=== PATIENT | female | born 1960 | race Caucasian/White ===

== ENCOUNTER 2023-04-10 08:13 | Inpatient (IN) ==
--- NOTE | 2023-03-20 10:01 | PAT Medication Instructions ---
Medication Instructions Date of Service March 20, 2023 Home Medications albuterol sulfate 90 mcg/actuation aerosol inhaler 1 inh inhalation QID PRN Shortness Of Breath bupropion HCl 150 mg 24 hr tablet, extended release 450 mg PO QPM carvedilol 12.5 mg tablet 12.5 mg PO BID cholecalciferol (vitamin D3) 50 mcg (2,000 unit) capsule (Vitamin D3) 50 mcg PO QPM cyanocobalamin (vitamin B-12) 1,000 mcg/mL injection solution 1,000 mcg IM MONTHLY cyanocobalamin (vitamin B-12) 2,000 mcg tablet,extended release (Vitamin B-12 ER) 2,000 mcg PO QPM cyclobenzaprine 10 mg tablet 10 mg PO TID PRN Muscle Spasm diltiazem HCl 360 mg tablet,extended release 24 hr 360 mg PO QPM loratadine 10 mg tablet (Claritin) 10 mg PO QAM losartan 100 mg-hydrochlorothiazide 25 mg tablet 1 tab PO QAM metformin 500 mg tablet,extended release 24 hr 500 mg PO QAM pantoprazole 40 mg tablet,delayed release 40 mg PO QAM potassium chloride 20 mEq tablet,extended release 20 meq PO BID prednisolone acetate (PF) 1 % eye drops,suspension 1 drp ophthalmic (eye) UD PRN occuvitis rivaroxaban 20 mg tablet (Xarelto) 20 mg PO PM rosuvastatin 20 mg tablet 20 mg PO QPM ASK your prescriber and surgeon rivaroxaban 20 mg tablet (Xarelto) 20 mg PO PM DO NOT take the morning of surgery cyanocobalamin (vitamin B-12) 1,000 mcg/mL injection solution 1,000 mcg IM MONTHLY loratadine 10 mg tablet (Claritin) 10 mg PO QAM losartan 100 mg-hydrochlorothiazide 25 mg tablet 1 tab PO QAM metformin 500 mg tablet,extended release 24 hr 500 mg PO QAM potassium chloride 20 mEq tablet,extended release 20 meq PO BID Take morning of surgery With a small sip of water, OTHERWISE NOTHING TO EAT OR DRINK AFTER MIDNIGHT: albuterol sulfate 90 mcg/actuation aerosol inhaler 1 inh inhalation QID PRN Shortness Of Breath (use if needed; please bring rescue inhaler with you to hospital day of surgery if possible) carvedilol 12.5 mg tablet 12.5 mg PO BID cyclobenzaprine 10 mg tablet 10 mg PO TID PRN Muscle Spasm (if needed) pantoprazole 40 mg tablet,delayed release 40 mg PO QAM prednisolone acetate (PF) 1 % eye drops,suspension 1 drp ophthalmic (eye) UD PRN occuvitis (if needed) Take evening before surgery albuterol sulfate 90 mcg/actuation aerosol inhaler 1 inh inhalation QID PRN Shortness Of Breath (if needed) bupropion HCl 150 mg 24 hr tablet, extended release 450 mg PO QPM carvedilol 12.5 mg tablet 12.5 mg PO BID cholecalciferol (vitamin D3) 50 mcg (2,000 unit) capsule (Vitamin D3) 50 mcg PO QPM cyanocobalamin (vitamin B-12) 2,000 mcg tablet,extended release (Vitamin B-12 ER) 2,000 mcg PO QPM cyclobenzaprine 10 mg tablet 10 mg PO TID PRN Muscle Spasm (if needed) diltiazem HCl 360 mg tablet,extended release 24 hr 360 mg PO QPM potassium chloride 20 mEq tablet,extended release 20 meq PO BID prednisolone acetate (PF) 1 % eye drops,suspension 1 drp ophthalmic (eye) UD PRN occuvitis (if needed) rosuvastatin 20 mg tablet 20 mg PO QPM Other Notes If you have any questions please call us at [phone] or [phone] or [phone] or [phone]
--- NOTE | 2023-03-27 13:14 | Anesthesiology Consultation ---
Date of Service March 27, 2023 Assessment & Plan (1) Encounter for pre-operative examination: - Check BSG AM DOS - Infectious disease screening: Per assessment on 03/27/23: No known infectious disease contacts or current infectious disease symptoms. No noted Covid positive test result in past 90 days. - Xarelto instructions: per surgeon/prescriber - Patient request/concern: Patient very anxious regarding upcoming surgery/anesthesia. She is requesting preop anxiolytic if possible. - Patient acceptable risk for surgery pending upcoming cardiology office visit note (Dr. Heck, appt 03/29). Chart Review Chart Review: Patient seen in Pre Admission Testing Teaching & Discussion Pre-Anesthesia Teaching/Discussion Notes: Instructed NPO after midnight before surgery,except medications with 15 cc of water. Medication instructions provided according to the PAT guidelines. History Surgery Operation Date: 04/10/23 10:05 Proposed Procedures p L4-S1 Decompression and Fusion, Spinal Cord Monitoring - Jose De Jesus Pierre, Height/Weight Height: 5 ft 4 in Weight: 99.5 kg Allergies Allergy/AdvReac Type Severity Reaction Status Date / Time aspirin [From Percodan] Allergy Intermediate Facial Verified 03/27/23 21:09 itching + swelling oxycodone [From Percodan] Allergy Intermediate Facial Verified 03/27/23 21:09 itching + swelling Sulfa (Sulfonamide Allergy Intermediate Hives Verified 03/19/23 16:34 Antibiotics) Medications Home Medications Medication Instructions Recorded Confirmed Last Taken albuterol sulfate 90 mcg/actuation 1 inh inhalation QID PRN Shortness 03/19/23 03/19/23 Unknown aerosol inhaler Of Breath bupropion HCl 150 mg 24 hr tablet, 450 mg PO QPM 03/19/23 03/19/23 Unknown extended release carvedilol 12.5 mg tablet 12.5 mg PO BID 03/19/23 03/19/23 Unknown cholecalciferol (vitamin D3) 50 50 mcg PO QPM 03/19/23 03/19/23 Unknown mcg (2,000 unit) capsule (Vitamin D3) cyanocobalamin (vitamin B-12) 1,000 mcg IM MONTHLY 03/19/23 03/19/23 Unknown 1,000 mcg/mL injection solution cyanocobalamin (vitamin B-12) 2,000 mcg PO QPM 03/19/23 03/19/23 Unknown 2,000 mcg tablet,extended release (Vitamin B-12 ER) cyclobenzaprine 10 mg tablet 10 mg PO TID PRN Muscle Spasm 03/19/23 03/19/23 Unknown diltiazem HCl 360 mg 360 mg PO QPM 03/19/23 03/19/23 Unknown tablet,extended release 24 hr loratadine 10 mg tablet (Claritin) 10 mg PO QAM 03/19/23 03/19/23 Unknown losartan 100 1 tab PO QAM 03/19/23 03/19/23 Unknown mg-hydrochlorothiazide 25 mg tablet metformin 500 mg tablet,extended 500 mg PO QAM 03/19/23 03/19/23 Unknown release 24 hr pantoprazole 40 mg tablet,delayed 40 mg PO QAM 03/19/23 03/19/23 Unknown release potassium chloride 20 mEq 20 meq PO BID 03/19/23 03/19/23 Unknown tablet,extended release prednisolone acetate (PF) 1 % eye 1 drp ophthalmic (eye) UD PRN 03/19/23 03/19/23 Unknown drops,suspension occuvitis rivaroxaban 20 mg tablet (Xarelto) 20 mg PO PM 03/19/23 03/19/23 Unknown rosuvastatin 20 mg tablet 20 mg PO QPM 03/19/23 03/19/23 Unknown Past Medical History Medical History Diabetes mellitus, type 2 Hyperlipemia Hypertension History of endometriosis Chronic back pain Scoliosis Depression Temporomandibular joint disorder + clicking, + rare locking Atrial fibrillation s/p ablation, taking Xarelto Follows with Dr. 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 History of cholecystectomy History of appendectomy History of tooth extraction History of wisdom tooth extraction Status post biopsy of thyroid gland benign nodules History of cardiac radiofrequency ablation 08/2022 @ [facility] Past Anesthesia History No Hx of Anesthesia Complications and No Family Hx of Anesthesia Complications History of PONV No Hx of PONV and Hx of Motion Sickness Social History Smoking Status: Light tobacco smoker Smoking cigarettes per day: 4 cigs/day Do You Dip or Chew Tobacco: No Hx Alcohol Use: No Hx Substance Use: No substance use type: does not use Review of Systems Patient denies chest pain, shortness of breath, fever, chills, cough, wheezing, palpitations. Physical Exam Vital Signs VITALS BP 163/83 P 72 TEMP 98.2 SP02 96%RA RESP 18 PHYSICAL Full cervical extension range of motion. Full TMJ range of motion. TMD 3 finger breaths Mallampati Score 2 Dentition: missing molars Lungs: clear throughout to auscultation Cardiac: regular rate and rhythm, no murmurs noted Spine: normal Carotid arteries: negative bruit Extremities: no LE edema Lab Results Anesthesia Preop Results Results Anesthesia Widget: WBC 9.74 K/ul (4.8-10.8) 03/27/23 Hgb 12.9 g/dl (12.0-16.0) 03/27/23 Hct 39.9 % (37.0-47.0) 03/27/23 Plt 380 K/uL (130-400) 03/27/23 Na 140 mmol/L (136-145) 03/27/23 K 4.3 mmol/L (3.5-5.1) 03/27/23 Cl 105 mmol/L (98-107) 03/27/23 CO2 29 mmol/L (21-32) 03/27/23 BUN 11 mg/dl (6-23) 03/27/23 Creat 0.69 mg/dl (0.6-1.2) 03/27/23 Glucose Level 120 mg/dl (70-99(Fasting)) H 03/27/23 PT 13.5 Seconds (9.0-12.0) H 03/27/23 PTT 34.9 Seconds (21.0-31.0) H 03/27/23 INR 1.2 (0.9-1.1) H 03/27/23 HA1c 6.3 % (4.5-5.6) H 03/27/23 Urine Color Yellow 03/27/23 Urine Appearance Clear (Clear) 03/27/23 Urine pH 6.5 (4.5-7.5) 03/27/23 Urine Specific [place] 1.006 (1.000-1.030) 03/27/23 Urine Protein Negative (Negative) 03/27/23 Urine Glucose (UA) Negative (Negative) 03/27/23 Urine Ketones Negative (Negative) 03/27/23 Urine Blood Negative (Negative) 03/27/23 Urine Nitrite Negative (Negative) 03/27/23 Urine Bilirubin Negative (Negative) 03/27/23 Urine Urobilinogen Negative (Negative) 03/27/23 Urine Leukocyte Esterase Negative (Negative) 03/27/23 Blood Type A Positive 03/27/23 Antibody Screen NEGATIVE 03/27/23 Testing Laboratory Results Mildly elevated coags- patient taking Xarelto* Electrocardiogram Date: 03/27/23 Findings: + NSR @ (69) Chest X-Ray Date: 03/27/23 FINDINGS: Lung volumes are normal. Lungs are clear. There is no pneumothorax or pleural effusion. Cardiac size is normal. Mediastinal contours are normal. There is no evidence for pulmonary edema. IMPRESSION: No acute cardiopulmonary findings. Echocardiogram Date: 08/10/21 EF 55 to 60%.
[~2023-04-10 08:13] MED LIST: GABAPENTIN 600 MG DOSE PO SCH; LR 15ML/HR IV SCH; LR 60ML/HR IV SCH
[2023-04-10] MEDS ORDERED: MIDAZOLAM HCL 1 MG/ML 2ML VIAL ONE (08:31)
[2023-04-10] MEDS ORDERED: DEXAMETHASONE SOD INJ 4 MG/ML VIAL ONE (08:31)
[2023-04-10] MEDS ORDERED: PROPOFOL IV EMULSION 10 MG/ML 20 ML VIAL IV ONE (08:31)
[2023-04-10] MEDS ORDERED: fentaNYL citrate PF 100 MCG/2 ML VIAL ONE (08:31)
[2023-04-10] MEDS ORDERED: LIDOCAINE 2% 2 ML VIAL/AMP(20MG/ML) INFIL ONE (08:31)
[2023-04-10] MEDS ORDERED: ROCURONIUM BROMIDE 10 MG/ML 5 ML VIAL IV ONE (08:31)
[2023-04-10] MEDS ORDERED: ONDANSETRON INJ 2 MG/ML 2 ML VIAL ONE (08:31)
[2023-04-10] MEDS ORDERED: HYDROmorphone INJ 2 MG/ML SYR/VIAL ONE (08:32)
--- NOTE | 2023-04-10 09:30 | History & Physical Bridge Note ---
Date of Service April 10, 2023 History & Physical Bridge Note I have examined the patient, reviewed the History & Physical and in the interval since the performance of the History & Physical I have noted the following changes of clinical significance: no changes noted
--- NOTE | 2023-04-10 09:32 | History & Physical Report ---
Date of Service April 10, 2023 Assessment & Plan (1) Neurogenic claudication due to lumbar spinal stenosis: Plan: L4-S1 decompression and fusion History of Present Illness Chief Complaint: Back and leg pain Primary Care Provider: Ale Wilder This is a 62-year-old female who presents for chronic persistent back and leg pain after failing course of nonoperative care she is here for surgical invention. Allergies Allergy/AdvReac Type Severity Reaction Status Date / Time aspirin [From Percodan] Allergy Intermediate Facial Verified 04/10/23 09:00 itching + swelling oxycodone [From Percodan] Allergy Intermediate Facial Verified 04/10/23 09:00 itching + swelling Sulfa (Sulfonamide Allergy Intermediate Hives Verified 04/10/23 09:00 Antibiotics) Home Medications Medication Instructions Recorded Confirmed Type albuterol sulfate 90 mcg/actuation 1 inh inhalation QID PRN Shortness 03/19/23 04/10/23 History aerosol inhaler Of Breath bupropion HCl 150 mg 24 hr tablet, 450 mg PO QPM 03/19/23 04/10/23 History extended release carvedilol 12.5 mg tablet 12.5 mg PO BID 03/19/23 04/10/23 History cholecalciferol (vitamin D3) 50 50 mcg PO QPM 03/19/23 04/10/23 History mcg (2,000 unit) capsule (Vitamin D3) cyanocobalamin (vitamin B-12) 1,000 mcg IM MONTHLY 03/19/23 04/10/23 History 1,000 mcg/mL injection solution cyanocobalamin (vitamin B-12) 2,000 mcg PO QPM 03/19/23 04/10/23 History 2,000 mcg tablet,extended release (Vitamin B-12 ER) cyclobenzaprine 10 mg tablet 10 mg PO TID PRN Muscle Spasm 03/19/23 04/10/23 History diltiazem HCl 360 mg 360 mg PO QPM 03/19/23 04/10/23 History tablet,extended release 24 hr loratadine 10 mg tablet (Claritin) 10 mg PO QAM 03/19/23 04/10/23 History losartan 100 1 tab PO QAM 03/19/23 04/10/23 History mg-hydrochlorothiazide 25 mg tablet metformin 500 mg tablet,extended 500 mg PO QAM 03/19/23 04/10/23 History release 24 hr pantoprazole 40 mg tablet,delayed 40 mg PO QAM 03/19/23 04/10/23 History release potassium chloride 20 mEq 20 meq PO BID 03/19/23 04/10/23 History tablet,extended release prednisolone acetate (PF) 1 % eye 1 drp ophthalmic (eye) UD PRN 03/19/23 04/10/23 History drops,suspension occuvitis rivaroxaban 20 mg tablet (Xarelto) 20 mg PO PM 03/19/23 04/10/23 History rosuvastatin 20 mg tablet 20 mg PO QPM 03/19/23 04/10/23 History Past Med/Surg History Medical History Diabetes mellitus, type 2 Hyperlipemia Hypertension History of endometriosis Chronic back pain Scoliosis Depression Temporomandibular joint disorder + clicking, + rare locking Atrial fibrillation s/p ablation, taking Xarelto Follows with Dr. 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 History of cholecystectomy History of appendectomy History of tooth extraction History of wisdom tooth extraction Status post biopsy of thyroid gland benign nodules History of cardiac radiofrequency ablation 08/2022 @ [facility] Family History Other No family history of adverse response to anesthesia Social History Smoking Status: Light tobacco smoker Tobacco Type: Cigarettes Cigarettes Per Day: 4 cigs/day; Second Hand Exposure: No; Do You Dip or Chew Tobacco: No; Tobacco Cessation Education Requested by Patient: No Hx Alcohol Use: No Hx Substance Use: No Preferred Language: Kyrgyz Communication Ability: Effective Moth Exterminator Required: No Beliefs That Will Affect Care: None Current Living Situation: Spouse Other Information That Helps Us Care for You: No Feels Safe at Home: Yes Safety Concerns: Feels Safe At This Time Assistive Devices: Glasses Physical Exam Physical Exam: Patient is alert and oriented Heart regular rhythm lungs clear Results & Data Results & Data Vital Signs (Past 12 Hours) Vital Signs Temp Pulse Resp BP Pulse Ox O2 Del Method 04/10/23 09:09 36.7 C 82 20 168/84 H 97 Room Air
[2023-04-10] MEDS ORDERED: ceFAZolin 330 MG/ML 1 GM VIAL ONE (09:58)
[2023-04-10] MEDS ORDERED: BUPIVACAINE/EPINEPHRINE 0.25% 1:200,000 30 ML VIAL ONE (09:58)
[2023-04-10] MEDS ORDERED: ATROPINE SULFATE 0.1 MG/ML 10ML SYR IV PRN (09:59)
[2023-04-10] MEDS ORDERED: ePHEDrine sulfate 50 MG/ML AMP IV PRN (09:59)
[2023-04-10] MEDS ORDERED: PROMETHAZINE HCL 12.5 MG in SODIUM CHLORIDE 0.9% 50 ML IV PRN ×2 (09:59→14:47)
[2023-04-10] MEDS ORDERED: ONDANSETRON INJ 2 MG/ML 2 ML VIAL IV PRN ×2 (09:59→14:47)
[2023-04-10] MEDS ORDERED: fentaNYL citrate PF 100 MCG/2 ML VIAL IV PRN (09:59)
[2023-04-10] MEDS: ceFAZolin 2000MG 2,000 MG/15 ML SYR IV SCH ×3 (10:01→18:21)
[2023-04-10] MEDS ORDERED: FLOSEAL HEMOSTATIC MATRIX 10ML TOP ONE (12:04)
[2023-04-10] MEDS ORDERED: SUGAMMADEX SODIUM 200 MG/2 ML VIAL IV ONE (12:04)
--- NOTE | 2023-04-10 12:15 | Operative Report ---
Post Operative Report Pre & Post Diagnosis Operation Date: 04/10/23 09:45 Pre-Op Diagnosis: Neurogenic Claudication Due To Lumbar Spinal Stenosis Spondylolisthesis L4-L5 Post-Op Diagnosis: Same I identified the patient and participated in the time-out.: Yes Procedure Operation Date: 04/10/23 09:45 Actual Procedures #1 lumbar decompression bilaterally facetectomies and foraminotomies L3-L4, L4-5 and L5-S1. #2 posterior spinal fusion L4-S1. #3 placement posterior instrumentation L4-S1. #4 interbody fusion L4-L5 L5-S1. #5 placement of Spira 13 x 26 mm at L4-5 and 12 x 26 mm at L5-S1. #6 placement locally harvested morselized autograft in the posterior gutters. #7 placement of I factor in the interbody space and infuse collagen sponge, mass graft in the posterior lateral gutters. Surgeon Jose De Jesus Pierre, DO Corrosion Control Engineer Lucinda Kasper Estimated Blood Loss 100 Findings See Below The patient is 5 foot 4 weighing over 100 kg with a BMI in excess of 37. Patient's body mass did contribute to significant technical difficulty requiring her deeper retractors longer instruments in order to perform her procedure. This at least 50% increased operative time. Specimens None Indications This is a 62-year-old female who presents above-mentioned diagnosis of failing since course of nonoperative care she is here for surgical invention. Description of Procedure Patient was met with identified informed consent obtained. Patient was taken to the operative suite and after undergoing intubation was placed in a prone position on the Travis table top of the Shravan frame. All bony promises well- padded I suspected to ensure no external precipice spinal. This point the lumbar spine was prepped and draped in a sterile fashion. Sharp dissection with the assistance of Bovie cautery to form down to and exposing the lamina and transverse processes of L4-5 and sacral ala bilaterally. From caudal cephalad fashion complete and laminectomy of L5 L4 and partial laminectomy of L3 was performed including bilateral medial facetectomies and foraminotomies addressing severe spinal stenosis. Pedicle screw was then placed in L4-L5 and S1 levels bilaterally with assistance of fluoroscopy and the properly sized marcos contoured and placed. By way of a transforaminal approach on the left a discectomy of L5- S1 was performed endplates guarded to subcortical bleeding bone and a 12 x 26 mm Spira cage with I factor tapped in position. Then proceeded to the right transforaminal region of L5-S1. Again completed discectomy curetted the endplates to subcortical bleeding bone and placed a second 12 x 26 mm Spira cage into position. And then proceeded to L4-L5 region by way of transforaminal approach on the left complete discectomy was performed endplates guarded to subcortical bleeding bone and a 13 x 26 mm Spira cage with I factor tapped in position. The rods were then compressed locked in final position bilaterally. The transverse processes of L4-5 and sacral ala burred to subcortical bone. Infuse collagen sponge, mass graft local graft was placed in the posterior gutters. 15 round RICHARD drain inserted. The incision was then closed with 1 Vicryl to fascia 2-0 Vicryl subcutaneously and 4 Monocryl for final skin closure. Steri-Strips sterile dressing placed. Patient waken taken to PACU stable addition. Please note spinal cord monitoring was utilized at the procedure no changes noted. Lastly Lucinda Kasper was present that the entire surgeon while the patient positioning complex portion of the surgery and final skin closure. I attest to the content of the Intraoperative Record and any orders documented therein. Any exceptions are noted below.
--- NOTE | 2023-04-10 14:40 | Anesthesiology Progress Note ---
Date of Service April 10, 2023 Anesthesia Post Procedure Vital Signs Vital Signs: Temp Pulse Pulse Resp BP Pulse Ox O2 Del Method 04/10/23 14:00 75 12 136/84 92 Room Air 04/10/23 13:35 36.4 C L 68 12 130/75 94 Room Air 04/10/23 13:25 67 13 138/79 95 Room Air 04/10/23 13:15 69 12 126/77 93 Room Air 04/10/23 13:05 73 13 156/77 H 97 Room Air 04/10/23 12:55 71 12 138/78 100 Oxymask 04/10/23 12:45 69 11 L 135/73 99 Oxymask 04/10/23 12:35 36.3 C L 70 14 136/79 99 Oxymask 04/10/23 09:09 36.7 C 82 20 168/84 H 97 Room Air O2 Flow Rate 04/10/23 14:00 04/10/23 13:35 04/10/23 13:25 04/10/23 13:15 04/10/23 13:05 04/10/23 12:55 5 04/10/23 12:45 5 04/10/23 12:35 5 04/10/23 09:09 Pain Intensity Bilateral Lower Back: Pain Intensity: 6 Transfer of Care Handoff Completed per policy Notes Mental Status: alert / awake / arousable and participated in evaluation Patient Amnestic to Procedure: Yes Nausea / Vomiting: adequately controlled Pain: adequately controlled Airway Patency, RR, SpO2: stable & adequate BP & HR: stable & adequate Hydration State: stable & adequate Anesthetic Complications: no major complications apparent and Pt Satisfied with anesthetic care
[2023-04-10] MEDS ORDERED: bisacodyL 10 MG SUPP PR PRN (14:47)
[2023-04-10] MEDS ORDERED: ALBUTEROL HFA 8 GM INHALER INH PRN (14:47)
[2023-04-10] MEDS ORDERED: traMADol HCL 50 MG TABLET PO PRN (14:47)
[2023-04-10] MEDS ORDERED: ACETAMINOPHEN 500 MG TAB PO PRN (14:47)
[2023-04-10] MEDS ORDERED: ALUMINUM/MAGNESIUM SUSP 30 ML UDC PO PRN (14:47)
[2023-04-10] MEDS ORDERED: LORazepam 0.5 MG in SYRINGE 0.25 ML IV PRN (14:47)
[2023-04-10] MEDS ORDERED: HYDROmorphone INJ 0.5 MG/0.5 ML SYR IV PRN (14:47)
[2023-04-10] MEDS ORDERED: PHARMACY GLYCEMIC MGMT CONSULT PRN (14:47)
[2023-04-10] MEDS ORDERED: SOD PHOSPHATE/SOD BIPHOSPHATE ENEMA 132 ML BTL PR PRN (14:47)
[2023-04-10] MEDS ORDERED: ONDANSETRON 4 MG OD TAB PO PRN (14:47)
[2023-04-10] MEDS ORDERED: METOCLOPRAMIDE HCL INJ 5 MG/ML 2 ML VIAL IV PRN (14:47)
[2023-04-10] MEDS ORDERED: ACETAMINOPHEN 1,000 MG/100 ML VIAL IV PRN (14:47)
[2023-04-10] MEDS ORDERED: diphenhydrAMINE Capsule 25 MG CAP PO PRN (14:47)
[2023-04-10] MEDS ORDERED: HYDROmorphone INJ 1 MG/ML SYRINGE IV PRN (14:47)
[2023-04-10] MEDS ORDERED: hydrOXYzine HCl 25 MG TAB PO PRN (14:47)
[2023-04-10] MEDS ORDERED: NALOXONE HCL 0.4 MG/1 ML VIAL/CARP IV PRN (14:47)
[2023-04-10] MEDS ORDERED: MAGNESIUM HYDROXIDE SUSP 30 ML UDC PO PRN (14:47)
[2023-04-10] MEDS ORDERED: LORazepam 0.5 MG TAB PO PRN (14:47)
[2023-04-10] MEDS ORDERED: FAMOTIDINE 20 MG TAB PO PRN (14:47)
[2023-04-10] MEDS ORDERED: DO NOT ADMINISTER PNEUMOCOCCAL VACCINE PRN (14:47)
[2023-04-10] MEDS ORDERED: DO NOT ADMINISTER FLU VACCINE PRN (14:47)
[2023-04-10] MEDS ORDERED: GLUCAGON FOR INJ 1 MG VIAL IM PRN (15:15)
[2023-04-10] MEDS ORDERED: DEXTROSE 50% 50 ML SYRINGE IV PRN (15:15)
[2023-04-10] MEDS ORDERED: GLUCOSE 40% GEL 15 GM TUBE PO PRN (15:15)
[2023-04-10] MEDS ORDERED: CARBOHYDRATES FOR HYPOGLYCEMIA PO PRN (15:15)
[2023-04-10] MEDS ORDERED: GLUCOSE 10 TAB/TUBE PO PRN (15:15)
--- NOTE | 2023-04-10 15:46 | Fluoroscopy Report ---
[place] lumbar spine 2-3V CLINICAL HISTORY: L4-S1 DECOMPRESSION AND FUSION COMPARISON STUDY: None. FLUOROSCOPY TIME: 22 seconds. Ka, r: 19.66 mGy FLUOROSCOPIC IMAGES: 2 FINDINGS: Fluoroscopy was provided during L4-L5 and L5-S1 discectomies with interbody spacer placemen t. Posterior decompression with bilateral pedicle screw fusion from L3-4 through S1 was noted. IMPRESSION: Fluoroscopy provided during L4-S1 decompression and fusion. ACT 112: Negative or not required by law. Electronically signed by: Zaki Michelle M.D. 04/10/2023 3:44 PM
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
[2023-04-10] MEDS: SODIUM CHLORIDE 0.9% 1,000 ML IV SCH ×2 (16:12→21:33)
[2023-04-10] MEDS: INSULIN ASPART PER UNIT CHARGE SC SCH ×2 (18:20→21:01)
--- NOTE | 2023-04-10 19:56 | Pharmacy Report ---
Pharmacy Glycemic Short Note 2 - Date of Service April 10, 2023 - Glycemic Short BSG Results (Last 24 hours): 04/10/23 04/10/23 04/10/23 09:10 12:38 16:33 POC Glucose 118 H 133 H 143 H OUTPATIENT ANTIDIABETIC REGIMEN: * metformin 500 mg daily ASSESSMENT: * 62 year old now s/p surgery, POD 0 - pharmacy consulted for glycemic management. Patient only on metformin at home. Postop BSG 133 mg/dL - steroids pulled in OR earlier this AM. Plan to use novolog stress 2/3 for now. Patient ordered dexamethasone daily starting tomorrow AM, may consider adding NPH to insulin regimen. Will evaluate in AM PLAN FOR INPATIENT GLYCEMIC CONTROL: * Hold outpatient oral diabetes medications * Basal insulin * Lantus - hold * Bolus insulin * NovoLog per scale ACHS or Q6hrs while NPO * Goal Range: Low 110 mg/dL - High 140 mg/dL * Correction Factor: 20 mg/dL/unit * Nutritional / Prandial insulin per carb ratio of 1 unit per 7 grams CHO consumed
[2023-04-10] MEDS: NICOTINE 21 MG/24 HR TDSY TD SCH (20:50)
[2023-04-10] MEDS: carvediloL 12.5 MG TAB PO SCH (20:51)
[2023-04-10] MEDS: CHOLECALCIFEROL 1,000 UNITS 25 MCG TAB PO SCH (20:51)
[2023-04-10] MEDS: CYANOCOBALAMIN (B-12) 500 MCG TABLET PO SCH (20:51)
[2023-04-10] MEDS: buPROPion XL 150 MG TABCR PO SCH (20:51)
[2023-04-10] MEDS: dilTIAZem HCL 180 MG CAPCR PO SCH (20:52)
[2023-04-10] MEDS: DOCUSATE SODIUM/SENNA 50/8.6MG TAB PO SCH (20:52)
[2023-04-10] MEDS: POTASSIUM CHLORIDE CRTAB 20 MEQ TABCR PO SCH (20:52)
[2023-04-10] MEDS: ROSUVASTATIN CALCIUM 20 MG TAB PO SCH (20:53)
[2023-04-10] MEDS: HYDROCODONE/ACETAMOPHEN 5/325MG TAB PO PRN ×2 (21:30→22:34)
[2023-04-11] MEDS: ceFAZolin 2000MG 2,000 MG/15 ML SYR IV SCH (02:29)
[2023-04-11] MEDS: POLYETHYLENE (MIRALAX) 17 GM PACK PO SCH ×2 (06:10→12:09)
[2023-04-11] MEDS: HYDROCODONE/ACETAMOPHEN 5/325MG TAB PO PRN ×4 (06:11→22:00)
[2023-04-11 06:24] LABS: Basophils # (auto) 0.02 K/uL (0.00-0.20); Basophils % (auto) 0.1 %; Eosinophils # (auto) 0.02 K/uL (0.00-0.50); Eosinophils % (auto) 0.1 %; Hematocrit (blood only) 34.1 % (37.0-47.0); Hemoglobin 11.1 g/dl (12.0-16.0); Immature Granulocytes # (auto) 0.08 K/uL (0.01-0.20); Immature Granulocytes % (auto) 0.5 %; Lymphocytes # (auto) 1.77 K/uL (1.20-3.40); Lymphocytes % (auto) 11.4 %; Mean Corpuscular Hemoglobin 29.8 pg (25.0-34.0); Mean Corpuscular Hgb Conc 32.6 g/dL (32.0-36.0); Mean Corpuscular Volume 91.4 fL (80.0-100.0); Mean Platelet Volume 11.5 fL (9.4-12.4); Monocytes # (auto) 0.78 K/uL (0.11-0.59); Neutrophils # (auto) 12.88 K/uL (1.40-6.50); Neutrophils % (auto) 82.9 %; Platelet Count 333 K/uL (130-400); RDW Coefficient of Variation 13.4 % (11.5-14.5); RDW Standard Deviation 44.5 fL (36.4-46.3); Red Blood Count 3.73 M/uL (4.20-5.40); White Blood Count 15.55 K/ul (4.8-10.8)
[2023-04-11 06:38] LABS: Anion Gap 9 (3-11); BUN Creatinine Ratio 23.1 (10-20); Blood Urea Nitrogen 12 mg/dl (6-23); Calcium 8.8 mg/dl (8.6-10.3); Carbon Dioxide 23 mmol/L (21-32); Chloride 106 mmol/L (98-107); Creatinine Clr Calc Pharmacy 125.8 ml/min; Glucose 140 mg/dl (70-99(Fasting)); Sodium 138 mmol/L (136-145)
[2023-04-11] MEDS: POTASSIUM CHLORIDE CRTAB 20 MEQ TABCR PO SCH ×2 (07:50→22:02)
[2023-04-11] MEDS: LOSARTAN/HCTZ 50/12.5MG TAB PO SCH (07:50)
[2023-04-11] MEDS: PANTOprazole 40 MG TAB PO SCH (07:50)
[2023-04-11] MEDS: carvediloL 12.5 MG TAB PO SCH ×2 (07:51→22:01)
[2023-04-11] MEDS: LORATADINE 10 MG TAB PO SCH (07:51)
[2023-04-11] MEDS: NICOTINE 21 MG/24 HR TDSY TD SCH (07:51)
[2023-04-11] MEDS: dexAMETHasone 6 MG in SYRINGE 0 ML IV SCH (07:51)
[2023-04-11] MEDS: INSULIN ASPART PER UNIT CHARGE SC SCH ×4 (07:52→22:02)
[2023-04-11] MEDS ORDERED: NovoLIN-N (NPH) PER UNIT CHARGE SQ SCH (09:00)
--- NOTE | 2023-04-11 09:13 | Orthopedic Progress Note ---
Date of Service April 11, 2023 Assessment & Plan (1) Neurogenic claudication due to lumbar spinal stenosis: Plan: At this time we will continue physical therapy monitor her RICHARD output hopefully discharge home next few days. Admission and Anticipated Discharge Date Admission Date: April 10, 2023 Subjective Back pain controlled leg pain markedly improved Physical Exam Physical Exam: Patient is very comfortable. Discussed when to testing. Results & Data Vital Signs (Past 12 Hours) Vital Signs Temp Pulse Resp BP Pulse Ox O2 Del Method 04/11/23 07:47 36.4 C L 74 18 136/80 96 Room Air 04/11/23 05:10 36.6 C 82 16 168/80 H 97 Room Air 04/11/23 02:37 84 16 134/80 95 Room Air 04/10/23 23:30 36.5 C 76 18 138/83 96 Room Air Queries Orthopedic Spine Obesity: Yes
--- NOTE | 2023-04-11 10:47 | Pharmacy Report ---
Pharmacy Glycemic Short Note 2 - Date of Service April 11, 2023 - Glycemic Short BSG Results (Last 24 hours): 04/10/23 04/10/23 04/10/23 12:38 16:33 20:36 Glucose POC Glucose 133 H 143 H 160 H 04/11/23 04/11/23 05:49 07:48 Glucose 140 H POC Glucose 146 H OUTPATIENT ANTIDIABETIC REGIMEN: * metformin 500 mg daily ASSESSMENT: 04/11/23 * Blood sugars well controlled, Dexamethasone 6mg IV daily x 3 days starting today, give NPH to cover steroid effects on BSG and titrate dose next two days. * Continue CF & CR at this time. 04/10/23 * 62 year old now s/p surgery, POD 0 - pharmacy consulted for glycemic management. Patient only on metformin at home. Postop BSG 133 mg/dL - steroids pulled in OR earlier this AM. Plan to use novolog stress 2/3 for now. Patient ordered dexamethasone daily starting tomorrow AM, may consider adding NPH to insulin regimen. Will evaluate in AM PLAN FOR INPATIENT GLYCEMIC CONTROL: * Hold outpatient oral diabetes medications * Basal insulin * NPH 15 units SQ Daily with dexamethasone * Bolus insulin * NovoLog per scale ACHS or Q6hrs while NPO * Goal Range: Low 110 mg/dL - High 140 mg/dL * Correction Factor: 20 mg/dL/unit * Nutritional / Prandial insulin per carb ratio of 1 unit per 7 grams CHO consumed
[2023-04-11] MEDS ORDERED: LOSARTAN POTASSIUM 50 MG TAB PO SCH (14:00)
--- NOTE | 2023-04-11 14:14 | Hospitalist Progress Note ---
Date of Service April 11, 2023 Assessment & Plan (1) Neurogenic claudication due to lumbar spinal stenosis: (2) Diabetes mellitus, type 2: (3) Atrial fibrillation: (4) Hypertension: (5) Hyperlipemia: (6) Obesity (BMI 35.0-39.9 without comorbidity): Plan per previous attending note with addendum: This is a 62-year-old female who has a significant past medical history of T2DM, HTN, HLD, atrial fibrillation who presents for elective lumbar procedure by Dr. Pierre. Neurogenic claudication due to lumbar spinal stenosis Status post L4-S1 lumbar decompression fusion by Dr. Pierre EBL 100 mL Pain/wound management per orthopedics Activity and therapy as prescribed orthopedic Will defer to orthopedics regarding resuming patient's Xarelto when they feel hemostasis has been achieved 04/11 Hg 12.9, now 11.1 Resume Xarelto once hemostasis achieved per Ortho T2DM Chronic, stable A1c 6.3, hold metformin, sliding scale per protocol Glycemic pharmacy on board, appreciate their recs Hypertension Chronic, stable On Coreg, losartan/HCTZ BP elevated likely secondary to pain Hydralazine as needed Hyperlipidemia Chronic, stable Continue statin PAF Follows [facility] cardiology Xarelto on hold in setting of procedure, resume once hemostasis is achieved per Ortho Prior ablation Obesity BMI 37.9 diet/lifestyle modifications Tobacco use smokes 4 cigs/day requesting nicotine patch DVT prophylaxis: SCDs Dispo: Per primary Full code PCP:Ale Wilder Thank you for this consultation. We will follow the patient with you during their hospital stay. You can reach a member of the [facility] Hospitalist Team 04/12 via hospitalist kim [place] on tiger text. Admission and Anticipated Discharge Date Admission Date: April 10, 2023 Subjective Follow-up for decompression fusion, etc. Seen resting in bed, comfortable, not in distress states she feels fine overall Low back pain more manageable Ambulating in the room with no problems no chest pain, dyspnea, palpitations, dizziness Review of Systems Review of Systems: all noted and negative except for above Physical Exam Physical Exam: General- oriented x 3, not in distress, speaks in sentences with no effort or accessory muscle use Eyes- anicteric Neck- no JVD Lungs- clear breath sounds bilaterally, no rales/wheezes Heart- normal rate, regular rhythm; no murmurs Abdomen- normal bowel sounds, nondistended, soft, nontender Back -dressing in place, drain in place with serosanguineous output Extremities- no pretibial edema, no calf tenderness Neuro- alert, oriented x 3; no gross focal neurologic deficits Skin- warm & dry Results & Data Results & Data Vital Signs (Past 12 Hours) Vital Signs Temp Pulse Resp BP Pulse Ox O2 Del Method 04/11/23 07:47 36.4 C L 74 18 136/80 96 Room Air 04/11/23 05:10 36.6 C 82 16 168/80 H 97 Room Air 04/11/23 02:37 84 16 134/80 95 Room Air all noted and reviewed including below
[2023-04-11] MEDS ORDERED: hydrALAZINE HCL 20 MG/ML VIAL IV PRN (15:45)
[2023-04-11] MEDS: buPROPion XL 150 MG TABCR PO SCH (22:00)
[2023-04-11] MEDS: CYANOCOBALAMIN (B-12) 500 MCG TABLET PO SCH (22:01)
[2023-04-11] MEDS: CHOLECALCIFEROL 1,000 UNITS 25 MCG TAB PO SCH (22:01)
[2023-04-11] MEDS: DOCUSATE SODIUM/SENNA 50/8.6MG TAB PO SCH (22:02)
[2023-04-11] MEDS: dilTIAZem HCL 180 MG CAPCR PO SCH (22:02)
[2023-04-11] MEDS: ROSUVASTATIN CALCIUM 20 MG TAB PO SCH (22:03)
[2023-04-12] MEDS: HYDROCODONE/ACETAMOPHEN 5/325MG TAB PO PRN ×3 (03:22→20:29)
[2023-04-12] MEDS: NICOTINE 21 MG/24 HR TDSY TD SCH (08:12)
[2023-04-12] MEDS: carvediloL 12.5 MG TAB PO SCH ×2 (08:13→20:31)
[2023-04-12] MEDS: PANTOprazole 40 MG TAB PO SCH (08:13)
[2023-04-12] MEDS: LORATADINE 10 MG TAB PO SCH (08:13)
[2023-04-12] MEDS: POTASSIUM CHLORIDE CRTAB 20 MEQ TABCR PO SCH ×2 (08:13→20:30)
[2023-04-12] MEDS: INSULIN ASPART PER UNIT CHARGE SC SCH ×4 (08:17→21:23)
[2023-04-12] MEDS: dexAMETHasone 6 MG in SYRINGE 0 ML IV SCH (08:18)
[2023-04-12] MEDS: NovoLIN-N (NPH) PER UNIT CHARGE SQ SCH (08:27)
--- NOTE | 2023-04-12 08:48 | Orthopedic Progress Note ---
Date of Service April 12, 2023 Assessment & Plan (1) Neurogenic claudication due to lumbar spinal stenosis: Plan This time we will continue physical therapy monitor RICHARD output anticipate discharge home tomorrow. Admission and Anticipated Discharge Date Admission Date: April 10, 2023 Subjective Back pain controlled leg pain improved Physical Exam Physical Exam: Patient is in the chair at the bedside. Is comfortable. Discussing the testing. Results & Data Vital Signs (Past 12 Hours) Vital Signs Temp Pulse Resp BP Pulse Ox O2 Del Method 04/12/23 07:43 36.6 C 70 16 154/88 H 96 Room Air 04/11/23 21:50 Room Air Queries Orthopedic Spine Obesity: Yes
[2023-04-12] MEDS: LOSARTAN/HCTZ 50/12.5MG TAB PO SCH (09:07)
[2023-04-12 09:50] LABS: Basophils # (auto) 0.01 K/uL (0.00-0.20); Basophils % (auto) 0.1 %; Eosinophils % (auto) 0.6 %; Hematocrit (blood only) 33.9 % (37.0-47.0); Hemoglobin 11.1 g/dl (12.0-16.0); Immature Granulocytes # (auto) 0.11 K/uL (0.01-0.20); Immature Granulocytes % (auto) 0.7 %; Lymphocytes # (auto) 2.72 K/uL (1.20-3.40); Lymphocytes % (auto) 16.2 %; Mean Corpuscular Hemoglobin 29.6 pg (25.0-34.0); Mean Corpuscular Hgb Conc 32.7 g/dL (32.0-36.0); Mean Corpuscular Volume 90.4 fL (80.0-100.0); Mean Platelet Volume 11.2 fL (9.4-12.4); Monocytes # (auto) 0.87 K/uL (0.11-0.59); Monocytes % (auto) 5.2 %; Neutrophils # (auto) 12.97 K/uL (1.40-6.50); Neutrophils % (auto) 77.2 %; Platelet Count 357 K/uL (130-400); RDW Coefficient of Variation 13.9 % (11.5-14.5); RDW Standard Deviation 45.9 fL (36.4-46.3); Red Blood Count 3.75 M/uL (4.20-5.40); White Blood Count 16.78 K/ul (4.8-10.8)
[2023-04-12 10:00] LABS: BUN Creatinine Ratio 31.3 (10-20); Creatinine Clr Calc Pharmacy 97.6 ml/min; Est GFR (African American) 107.7 ml/min; Est GFR (Non-African American) 92.9 ml/min
--- NOTE | 2023-04-12 17:50 | Hospitalist Progress Note ---
Date of Service April 12, 2023 Assessment & Plan (1) Neurogenic claudication due to lumbar spinal stenosis: (2) Diabetes mellitus, type 2: (3) Atrial fibrillation: (4) Hypertension: (5) Hyperlipemia: (6) Obesity (BMI 35.0-39.9 without comorbidity): Plan per previous attending note with addendum: This is a 62-year-old female who has a significant past medical history of T2DM, HTN, HLD, atrial fibrillation who presents for elective lumbar procedure by Dr. Pierre. Neurogenic claudication due to lumbar spinal stenosis Status post L4-S1 lumbar decompression fusion by Dr. Pierre EBL 100 mL Pain/wound management per orthopedics Activity and therapy as prescribed orthopedic Will defer to orthopedics regarding resuming patient's Xarelto when they feel hemostasis has been achieved 04/12 Hg 12.9, remains at 11 Resume Xarelto once hemostasis achieved per Ortho Medically stable overall T2DM Chronic, stable A1c 6.3, hold metformin, sliding scale per protocol Glycemic pharmacy on board, appreciate their recs Hypertension Chronic, stable On Coreg, losartan/HCTZ BP elevated likely secondary to Decadron Hydralazine as needed Monitor closely Hyperlipidemia Chronic, stable Continue statin PAF Follows [facility] cardiology Xarelto on hold in setting of procedure, resume once hemostasis is achieved per Ortho Prior ablation Obesity BMI 37.9 diet/lifestyle modifications Tobacco use smokes 4 cigs/day requesting nicotine patch DVT prophylaxis: SCDs Dispo: Per primary Full code PCP:Ale Wilder Thank you for this consultation. We will follow the patient with you during their hospital stay. You can reach a member of the [facility] Hospitalist Team 04/12 via hospitalist role on tiger text. Admission and Anticipated Discharge Date Admission Date: April 10, 2023 Subjective Follow-up for status post back surgery, etc. Seen resting in bed, comfortable, not in distress States she feels fine overall Minimal lower back pain, ambulating in the hallways with no issues no chest pain, dyspnea, palpitations, dizziness No other new symptoms Review of Systems Review of Systems: all noted and negative except for above Physical Exam Physical Exam: General- oriented x 3, not in distress, speaks in sentences with no effort or accessory muscle use Eyes- anicteric Neck- no JVD Lungs- clear breath sounds bilaterally Heart- normal rate, regular rhythm; no murmurs Abdomen- normal bowel sounds, nondistended, soft, nontender Extremities- no pretibial edema, no calf tenderness Neuro- alert, oriented x 3; no gross focal neurologic deficits Skin- warm & dry Results & Data Results & Data Vital Signs (Past 12 Hours) Vital Signs Temp Pulse Pulse Resp BP BP Pulse Ox 04/12/23 14:51 36.7 C 72 16 156/94 H 97 04/12/23 07:43 36.6 C 70 16 154/88 H 96 O2 Del Method 04/12/23 14:51 Room Air 04/12/23 07:43 Room Air all noted and reviewed including below
[2023-04-12] MEDS: CHOLECALCIFEROL 1,000 UNITS 25 MCG TAB PO SCH (20:30)
[2023-04-12] MEDS: ROSUVASTATIN CALCIUM 20 MG TAB PO SCH (20:30)
[2023-04-12] MEDS: CYANOCOBALAMIN (B-12) 500 MCG TABLET PO SCH (20:30)
[2023-04-12] MEDS: buPROPion XL 150 MG TABCR PO SCH (20:30)
[2023-04-12] MEDS: DOCUSATE SODIUM/SENNA 50/8.6MG TAB PO SCH (20:31)
[2023-04-12] MEDS: dilTIAZem HCL 180 MG CAPCR PO SCH (20:31)
[2023-04-13] MEDS: HYDROCODONE/ACETAMOPHEN 5/325MG TAB PO PRN ×2 (03:14→09:28)
[2023-04-13 06:53] LABS: BUN Creatinine Ratio 33.8 (10-20); Calcium 9.3 mg/dl (8.6-10.3); Creatinine Clr Calc Pharmacy 100.6 ml/min; Est GFR (African American) 108.7 ml/min; Est GFR (Non-African American) 93.8 ml/min
[2023-04-13] MEDS: LOSARTAN/HCTZ 50/12.5MG TAB PO SCH (08:16)
[2023-04-13] MEDS: carvediloL 12.5 MG TAB PO SCH (08:16)
[2023-04-13] MEDS: LORATADINE 10 MG TAB PO SCH (08:16)
[2023-04-13] MEDS: PANTOprazole 40 MG TAB PO SCH (08:16)
[2023-04-13] MEDS: NICOTINE 21 MG/24 HR TDSY TD SCH (08:17)
[2023-04-13] MEDS: POTASSIUM CHLORIDE CRTAB 20 MEQ TABCR PO SCH (08:17)
[2023-04-13] MEDS: dexAMETHasone 6 MG in SYRINGE 0 ML IV SCH (08:18)
[2023-04-13] MEDS: INSULIN ASPART PER UNIT CHARGE SC SCH ×2 (08:28→12:15)
[2023-04-13] MEDS: NovoLIN-N (NPH) PER UNIT CHARGE SQ SCH (09:27)
--- NOTE | 2023-04-13 10:53 | Discharge Summary ---
Date of Service April 13, 2023 Admission HPI Per Admitting Provider This is a 62-year-old female who presents for chronic persistent back and leg pain after failing course of nonoperative care she is here for surgical invention. Principal Diagnosis Lumbar spinal stenosis with neurogenic claudication Discharge Data Allergies Allergy/AdvReac Type Severity Reaction Status Date / Time aspirin [From Percodan] Allergy Intermediate Facial Verified 04/10/23 09:00 itching + swelling oxycodone [From Percodan] Allergy Intermediate Facial Verified 04/10/23 09:00 itching + swelling Sulfa (Sulfonamide Allergy Intermediate Hives Verified 04/10/23 09:00 Antibiotics) Consultations 04/10/23 14:47 Consult Hospitalist Routine Procedures Performed Operation Date: 04/10/23 09:45 Actual Procedures p L4-S1 Decompression and Fusion with Spinal Cord Monitoring(Not Applicable) - Jose De Jesus Pierre DO Ordered Studies 04/10/23 09:45 [place] lumbar spine 2-3V Routine Hospital Course (1) Neurogenic claudication due to lumbar spinal stenosis: Patient 1 lumbar decompression fusion tolerates well stable orthopedic for postoperative. Postop day 1 is up and ambulating. Postop day #2 on postop day 1. She was ambulating halls without difficulty RICHARD drain decreasing probably. Simply discharged home. Discharge orders and instructions from the chart for further review. Total Time Total Time Spent Total Time Spent (In Minutes): 20 minutes Discharge Plan Discharge Items Patient Disposition: Home - Self-Care Reason For Visit: POSTOP Discharge Diagnosis: Lumbar spinal stenosis with neurogenic claudication Activity: As commented below Non-emergency contact: Primary Care Provider Call non-emergency contact if: you have any medication questions Follow-up/Referrals: PCP,NO [Physician] - Diet: Regular Ambulatory Orders: Hemoglobin A1C (Glycosylated) (Routine) Timeframe: 1 Day Location: Determined by Patient Ordered By: Edilia Fritz Attending Provider Instructions: ACTIVITY RECOMMENDATIONS: SELF CARE INSTRUCTIONS AFTER THORACIC/LUMBAR FUSIONS 1. You may walk to your tolerance. It is good exercise for your legs and back. Expect some back and intermittent leg aches and pains. 2. You may perform "counter-top" level activities (make a sandwich, kendal with a project, etc.). 3. No bending or lifting of more than 10 pounds or back twisting of any nature (roll like a log when turning in bed). 4. You may ride in a car for 20-30 minutes at a time. No driving until after your first visit with your doctor. 5. Frequent changes of position and restricting sitting to 30 minutes at a time will help limit the amount of back spasms and stiffness you may experience. 6. You may discontinue the use of ambulatory aids (cane, crutches, etc.) once your strength and confidence allow. 7. You may manufacturing weaver the shower and let water strike your incision when you arrive home at least once daily. Do not take a tub bath, sit in a hot tub or go into a swimming pool until after your first recheck in the office. SPECIAL CARE INSTRUCTIONS: VERY IMPORTANT TO READ AND REVIEW A. Your surgical incision has been closed with a cosmetic suture under the skin that will dissolve in about 6 weeks. In 14 days, you can use a pair of clean scissors and cut the suture that is left outside of the skin at the ends of your incision. 1. The small skin tapes can be removed 7 days after surgery if they have not fallen off by that point. 2. You may keep the wound open to air as much as possible to promote healing after post-op day number 5 unless told otherwise by your doctor. 3. If you think the wound looks like it is becoming infected (redness or worsening drainage) and/or you are experiencing fever, chill or worsening back pain and muscle spasms, contact the office so that we may evaluate you as soon as possible. B. Complications are uncommon, but please contact us if you have any signs or symptoms of: 1. wound infection (fever higher than 102.5 degrees F, redness, separation of wound, drainage, or increasing pain from the incision) 2. blood clots in legs (pain, swelling, redness and warmth in legs) 3. urinary tract infection (fever higher than 102.5 degrees F, burning upon urination or increased frequency of urination) 4. nerve problems (inability to walk on your toes or heels, numbness, loss of bowel or bladder control) 5. any other symptoms that concern you C. Please call the office at if you have any concerns or questions about your operation or recovery. D. No smoking! Smoking drastically decreases the chance of a solid fusion. E. Do not take any anti-inflammatory medications (Indocin, Advil, Motrin, Aspirin, Naprosyn, etc.) as these may inhibit the chance of a solid fusion. Tylenol is okay to take for pain. MANAGING PAIN AFTER SPINAL SURGERY 1. Narcotic medication is intended for short-term use and will be provided for surgical pain. Surgical pain usually lasts for a period of 4-6 weeks. Narcotic medication includes Percocet, Vicodin, Darvocet, Tylenol #3 or Lortab. 2. Longer-term pain is more appropriately treated with non-narcotic medication such as Tylenol ES. 3. Muscle spasm is not appropriately treated with narcotics. Muscle relaxers such as Soma, Flexeril or Skelaxin can be used along with Tylenol ES. 4. Remember that we all live with some "aches and pains". This is not unusual or uncommon after an injury or as we get older. a. Back pain is expected and may include muscle spasms for 4 to 6 weeks after surgery. The pain should gradually improve. If the pain worsens for no apparent reason, please contact the office. b. Intermittent leg pain may also be experienced and should not be concerned about unless it worsens for no apparent reason. If so, please contact the office. 5. We will provide appropriate medication within the normal guidelines of their prescribed use. We will also be very cautious and aware of potential abuse and extended duration of patients' medication needs. a. Pain medications are for your comfort and to assist with sleep and rest so that the tissue can heal. They are not provided in order to return to normal activity and should not be used through the day. To do so or worsening pain at night can result from ongoing tissue damage and development of tolerance to the prescribed medicine. 6. Please allow 2-3 days to process refills. Prescriptions will not be mailed but must be picked up at the office. FOLLOW UP VISIT: Keep your scheduled follow-up appointment. Any questions, please call the office at . Pending Studies at Discharge: No Stand-Alone Forms: My [employer], Smoking Cessation Medications and DC Order Prescriptions: New hydrocodone-acetaminophen 5-325 mg tablet 1 tab PO Q6H PRN (Reason: pain) Qty: 30 0RF tramadol 50 mg tablet 50 mg PO Q6H PRN (Reason: pain, moderate) Qty: 30 0RF Continued cyclobenzaprine 10 mg Tablet 10 mg PO TID PRN (Reason: Muscle Spasm) carvedilol 12.5 mg Tablet 12.5 mg PO BID Rx Instructions: must administer with a meal/food cyanocobalamin (vitamin B-12) 1,000 mcg/mL Solution 1,000 mcg IM MONTHLY cyanocobalamin (vitamin B-12) [Vitamin B-12] 2,000 mcg Tablet Extended Release 2,000 mcg PO QPM albuterol sulfate 90 mcg/actuation Hfa Aerosol Inhaler 1 inh INHALATION QID PRN (Reason: Shortness Of Breath) diltiazem HCl 360 mg Tablet Extended Release 24 Hr 360 mg PO QPM bupropion HCl 150 mg Tablet Extended Release 24 Hr 450 mg PO QPM cholecalciferol (vitamin D3) [Vitamin D3] 50 mcg (2,000 unit) Capsule 50 mcg PO QPM losartan-hydrochlorothiazide 100-25 mg Tablet 1 tab PO QAM loratadine [Claritin] 10 mg Tablet 10 mg PO QAM pantoprazole 40 mg Tablet,Delayed Release (Dr/Ec) 40 mg PO QAM metformin 500 mg Tablet Extended Release 24 Hr 500 mg PO QAM potassium chloride 20 mEq Tablet Extended Release 20 meq PO BID prednisolone acetate (PF) 1 % Drops,Suspension 1 drp OPHTHALMIC (EYE) UD PRN (Reason: occuvitis) rosuvastatin 20 mg Tablet 20 mg PO QPM Xarelto 20 mg Tablet 20 mg PO PM Rx Instructions: must administer with evening meal Discharge Orders: Discharge Order (Routine); Ordered 04/13/23 Ordered By: Jose De Jesus Pierre Admission Data Admit Date/Time: 04/10/23 12:19 Attending Provider: Jose De Jesus Pierre Admit Provider: Jose De Jesus Pierre Primary Care Provider: Ale Wilder Other Providers: Alissa العراقي; Colton Hall
--- NOTE | 2023-04-13 13:42 | Hospitalist Progress Note ---
Date of Service April 13, 2023 Assessment & Plan (1) Neurogenic claudication due to lumbar spinal stenosis: (2) Diabetes mellitus, type 2: (3) Atrial fibrillation: (4) Hypertension: (5) Hyperlipemia: (6) Obesity (BMI 35.0-39.9 without comorbidity): Plan per previous attending note with addendum: This is a 62-year-old female who has a significant past medical history of T2DM, HTN, HLD, atrial fibrillation who presents for elective lumbar procedure by Dr. Pierre. Neurogenic claudication due to lumbar spinal stenosis Status post L4-S1 lumbar decompression fusion by Dr. Pierre EBL 100 mL Pain/wound management per orthopedics Activity and therapy as prescribed orthopedic Will defer to orthopedics regarding resuming patient's Xarelto when they feel hemostasis has been achieved 11 Hg 12.9, remains at 11 Resume Xarelto once hemostasis achieved per Ortho Medically stable overall 04/13 Stable overall Okay to resume Xarelto today as per Ortho T2DM Chronic, stable A1c 6.3, hold metformin, sliding scale per protocol Glycemic pharmacy on board, appreciate their recs Resume metformin upon discharge Hypertension Chronic, stable On Coreg, losartan/HCTZ BP elevated likely secondary to Decadron Hydralazine as needed Advised patient to resume all BP meds at home, anticipate blood pressure will improve once Decadron has been discontinued Hyperlipidemia Chronic, stable Continue statin PAF Follows [facility] cardiology Xarelto on hold in setting of procedure, resume once hemostasis is achieved per Ortho Prior ablation Obesity BMI 37.9 diet/lifestyle modifications Tobacco use smokes 4 cigs/day nicotine patch DVT prophylaxis: SCDs Dispo: Per primary Full code PCP:Ale Wilder Admission and Anticipated Discharge Date Admission Date: April 10, 2023 Subjective Follow-up for back surgery, etc. Seen resting in bedside chair, comfortable, not in distress States she feels fine overall Minimal back pain Ambulating with no problems no chest pain, dyspnea, palpitations, dizziness No other new symptoms Review of Systems Review of Systems: all noted and negative except for above Physical Exam Physical Exam: General- oriented x 3, not in distress, speaks in sentences with no effort or accessory muscle use Eyes- anicteric Neck- no JVD Lungs- clear BS BL Heart- normal rate, regular rhythm; no murmurs Abdomen- normal bowel sounds, nondistended, soft, no tenderness Extremities- no pretibial edema, no calf tenderness Neuro- alert, oriented x 3; no gross focal neurologic deficits Skin- warm & dry Results & Data Results & Data Vital Signs (Past 12 Hours) Vital Signs Temp Pulse Resp BP Pulse Ox O2 Del Method 04/13/23 07:38 151/79 H 04/13/23 07:30 36.5 C 71 16 166/93 H 98 Room Air all noted and reviewed including below
== END 2023-04-13 14:02 | disposition home or self-care (01) | DRG 455 ==
LOC: ASU 08:13 → PACUINP 12:19 → 3E 14:44